=== PATIENT | female | born 1950 | race Caucasian/White ===

== ENCOUNTER 2022-09-15 09:36 | Inpatient (IN) ==
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
[2022-09-15 10:11] LABS: BASOPHILS # (AUTO) 0.2 X10^3/uL (0.0-0.1); BASOPHILS % (AUTO) 1.3 % (0.2-1.0); EOSINOPHILS # (AUTO) 0.2 x10^3/uL (0.0-0.2); EOSINOPHILS % (AUTO) 1.3 % (0.9-2.9); HEMATOCRIT 54.3 % (36.0-47.0); HEMOGLOBIN 18.5 g/dL (12.0-16.0); LYMPHOCYTES # (AUTO) 2.7 X10^3/uL (1.3-2.9); LYMPHOCYTES % (AUTO) 21.6 % (21.0-51.0); MEAN CORPUSCULAR HEMOGLOBIN 32.2 pg (27.0-34.0); MEAN CORPUSCULAR HGB CONC 34.1 g/dL (33.0-35.0); MEAN CORPUSCULAR VOLUME 94.4 fL (80.0-100.0); MEAN PLATELET VOLUME 9.8 fL (7.4-11.0); MONOCYTES # (AUTO) 1.1 x10^3/uL (0.3-0.8); MONOCYTES % (AUTO) 8.8 % (0.0-13.0); NEUTROPHILS # (AUTO) 8.3 x10^3/uL (2.2-4.8); PLATELET COUNT 267 X10^3/uL (150.0-450.0); RED BLOOD COUNT 5.75 X10^6/uL (3.5-5.4); RED CELL DISTRIBUTION WIDTH 13.4 % (11.6-16.5); WHITE BLOOD COUNT 12.3 X10^3/uL (3.6-10.0)
[2022-09-15] MEDS ORDERED: APRESOLINE INJ 20 MG VIAL IVP ONE ×2 (10:24→12:06)
[2022-09-15] MEDS ORDERED: APRESOLINE INJ 20 MG VIAL ONE ×2 (10:24→11:53)
[2022-09-15 10:27] LABS: BILIRUBIN,URINE 1+ (NEGATIVE); BLOOD/HEMOGLOBIN,URINE 3+ (NEGATIVE); GLUCOSE, URINE NEGATIVE (NEGATIVE); KETONES,URINE 4+ (NEGATIVE); LEUKOCYTE ESTERASE ,URINE 3+ (NEGATIVE); NITRITES,URINE POSITIVE (NEGATIVE); PROTEIN,URINE 2+ (NEGATIVE); UROBILINOGEN,URINE 1+ (NORMAL)
[2022-09-15 10:28] LABS: ALANINE AMINOTRANSFERASE 37 Units/L (12-78); ALBUMIN 3.6 g/dL (3.4-5.0); ALKALINE PHOSPHATASE 60 Units/L (46-116); ASPARTATE AMINO TRANSFERASE 36 Units/L (15-37); BLOOD UREA NITROGEN 15 mg/dL (7-18); CARBON DIOXIDE 23.9 mmol/L (21-32); CHLORIDE 103 mmol/L (98-107); COR NA(FOR HYPERGLY) 139 mmol/L (136-145); CREATININE 0.84 mg/dL (0.55-1.02); GLUCOSE 113 mg/dL (65-99); LIPASE 101 Units/L (73-393); POTASSIUM 4.1 mmol/L (3.5-5.1); SODIUM 139 mmol/L (136-145); TOTAL PROTEIN 7.5 g/dL (6.4-8.2); TSH (3RD GENERATION) 4.089 uIU/mL (0.358-3.74); eGFR NON BLACK RACES > 60 (>60)
[2022-09-15 10:40] LABS: APPEARANCE,URINE TURBID (CLEAR); BACTERIA,URINE 2+ /HPF (NEGATIVE); COLOR,URINE DARK YELLOW (YELLOW); RBC,URINE 0-2 /HPF (0-3); SQUAMOUS EPITHELIAL CELL,UR FEW /HPF (NEGATIVE)
[2022-09-15] MEDS ORDERED: NS 250 ML IV 250 ML IV ONE ×2 (10:44→11:06)
[2022-09-15] MEDS ORDERED: ROCEPHIN VIAL 1 GRAM 1 G in NS 100 ML IV 100 ML IV ONE (10:46)
[2022-09-15] MEDS ORDERED: ROCEPHIN VIAL 1 GRAM ONE (10:53)
[2022-09-15] MEDS ORDERED: NS 50 ML IV 50 ML IV ONE (10:54)
--- NOTE | 2022-09-15 10:56 | EKG ---
Test Reason : weakness Blood Pressure : */* mmHG Vent. Rate : 117 BPM Atrial Rate : 117 BPM P-R Int : 144 ms QRS Dur : 70 ms QT Int : 338 ms P-R-T Axes : 81 27 68 degrees QTc Int : 471 ms Sinus tachycardia Otherwise normal ECG No previous ECGs available Confirmed by Casper Bueno ([id number]) on 09/15/2022 6:36:26 PM Referred By: Confirmed By: Casper Bueno
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
[2022-09-15] MEDS ORDERED: NS 1,000 ML IV 1,000 ML ONE (12:13)
[2022-09-15] MEDS ORDERED: NICOTINE PATCH TD ONE (12:19)
[2022-09-15] MEDS ORDERED: ATIVAN INJ 2 MG VIAL IVP ONE (12:28)
--- NOTE | 2022-09-15 12:28 | EKG ---
Test Reason : tachycardia Blood Pressure : */* mmHG Vent. Rate : 153 BPM Atrial Rate : 153 BPM P-R Int : 128 ms QRS Dur : 64 ms QT Int : 264 ms P-R-T Axes : 78 42 78 degrees QTc Int : 421 ms Sinus tachycardia with premature supraventricular complexes Nonspecific ST abnormality Abnormal ECG When compared with ECG of 15-SEP-2022 10:39, (Unconfirmed) premature supraventricular complexes are now present ST now depressed in Lateral leads Confirmed by Casper Bueno ([id number]) on 09/15/2022 6:36:18 PM Referred By: Confirmed By: Casper Bueno
[2022-09-15] MEDS ORDERED: ATIVAN INJ 2 MG VIAL ONE (12:30)
[2022-09-15] MEDS ORDERED: CARDIZEM INJ 50 MG VIAL IVP ONE ×2 (12:47→12:59)
[2022-09-15] MEDS ORDERED: NS 1,000 ML IV 1,000 ML IV SCH (13:00)
[2022-09-15] MEDS: ROCEPHIN VIAL 1 GRAM 1 G in NS 100 ML IV 100 ML IV SCH (14:45)
[2022-09-15] MEDS: NS 1,000 ML IV 1,000 ML IV SCH ×2 (14:57→20:00)
[2022-09-15] MEDS: TOPROL XL PO SCH (17:20)
[2022-09-16] MEDS: NS 1,000 ML IV 1,000 ML IV SCH ×5 (03:00→23:45)
[2022-09-16 05:08] LABS: MEAN CORPUSCULAR HEMOGLOBIN 32.7 pg (27.0-34.0)
[2022-09-16 05:16] LABS: BASOPHILS # (AUTO) 0.1 X10^3/uL (0.0-0.1); BASOPHILS % (AUTO) 0.8 % (0.2-1.0); EOSINOPHILS # (AUTO) 0.1 x10^3/uL (0.0-0.2); EOSINOPHILS % (AUTO) 1.6 % (0.9-2.9); HEMATOCRIT 48.4 % (36.0-47.0); HEMOGLOBIN 16.7 g/dL (12.0-16.0); LYMPHOCYTES % (AUTO) 21.2 % (21.0-51.0); MEAN CORPUSCULAR HGB CONC 34.5 g/dL (33.0-35.0); MEAN CORPUSCULAR VOLUME 94.8 fL (80.0-100.0); MEAN PLATELET VOLUME 10.4 fL (7.4-11.0); MONOCYTES # (AUTO) 0.9 x10^3/uL (0.3-0.8); MONOCYTES % (AUTO) 9.5 % (0.0-13.0); NEUTROPHILS # (AUTO) 6.3 x10^3/uL (2.2-4.8); NEUTROPHILS % (AUTO) 66.9 % (42.0-75.0); PLATELET COUNT 216 X10^3/uL (150.0-450.0); RED BLOOD COUNT 5.11 X10^6/uL (3.5-5.4); RED CELL DISTRIBUTION WIDTH 13.4 % (11.6-16.5); WHITE BLOOD COUNT 9.4 X10^3/uL (3.6-10.0)
[2022-09-16 05:19] LABS: ALANINE AMINOTRANSFERASE 25 Units/L (12-78); ALBUMIN 2.9 g/dL (3.4-5.0); ALKALINE PHOSPHATASE 48 Units/L (46-116); ASPARTATE AMINO TRANSFERASE 21 Units/L (15-37); BLOOD UREA NITROGEN 8 mg/dL (7-18); CALCIUM 8.2 mg/dL (8.5-10.1); CARBON DIOXIDE 23.7 mmol/L (21-32); CHLORIDE 106 mmol/L (98-107); COR CA(FOR HYPOALB) 9.1 mg/dL (8.5-10.1); CREATININE 0.69 mg/dL (0.55-1.02); GLUCOSE 90 mg/dL (65-99); POTASSIUM 3.7 mmol/L (3.5-5.1); SODIUM 141 mmol/L (136-145); TOTAL PROTEIN 6.2 g/dL (6.4-8.2); eGFR NON BLACK RACES > 60 (>60)
[2022-09-16] MEDS ORDERED: MICRO K EXTEN CAP 10 MEQ PO PRN ×2 (06:20→10:54)
[2022-09-16] MEDS ORDERED: K-DUR TAB 20 MEQ PO PRN ×2 (06:20→10:54)
[2022-09-16] MEDS ORDERED: KLOR-CON PO PRN ×2 (06:20→10:54)
[2022-09-16] MEDS: TOPROL XL PO SCH (08:40)
[2022-09-16] MEDS: ROCEPHIN VIAL 1 GRAM 1 G in NS 100 ML IV 100 ML IV SCH (08:41)
[2022-09-16] MEDS: LOVENOX INJ 40 MG SYR SC SCH (08:54)
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
[2022-09-16] MEDS ORDERED: POTASSIUM CHL 40 MEQ/NS 0.45% 500 ML IV PRN (10:54)
[2022-09-16] MEDS ORDERED: POTASSIUM CHLORIDE LIQ 20 MEQ UDC PO PRN (10:54)
[2022-09-16] MEDS ORDERED: POTASSIUM CHL 60 MEQ/NS 0.45% 500 ML IV PRN (10:54)
[2022-09-16] MEDS ORDERED: MAGNESIUM SULFATE 1 GRAM/100 mL PREMIX 1 G/100 ML BAG IV PRN (10:54)
[2022-09-16] MEDS: NICOTINE PATCH TD SCH (11:34)
[2022-09-16 12:24] VITALS: BMI 24.3
[2022-09-17 05:17] LABS: BASOPHILS # (AUTO) 0.1 X10^3/uL (0.0-0.1); EOSINOPHILS # (AUTO) 0.2 x10^3/uL (0.0-0.2); EOSINOPHILS % (AUTO) 1.5 % (0.9-2.9); HEMATOCRIT 43.6 % (36.0-47.0); LYMPHOCYTES # (AUTO) 2.5 X10^3/uL (1.3-2.9); LYMPHOCYTES % (AUTO) 21.5 % (21.0-51.0); MEAN CORPUSCULAR HEMOGLOBIN 32.6 pg (27.0-34.0); MEAN CORPUSCULAR HGB CONC 34.4 g/dL (33.0-35.0); MEAN CORPUSCULAR VOLUME 94.7 fL (80.0-100.0); MEAN PLATELET VOLUME 10.4 fL (7.4-11.0); MONOCYTES % (AUTO) 8.9 % (0.0-13.0); NEUTROPHILS # (AUTO) 7.7 x10^3/uL (2.2-4.8); NEUTROPHILS % (AUTO) 67.1 % (42.0-75.0); PLATELET COUNT 188 X10^3/uL (150.0-450.0); WHITE BLOOD COUNT 11.5 X10^3/uL (3.6-10.0)
[2022-09-17 05:29] LABS: ALANINE AMINOTRANSFERASE 20 Units/L (12-78); ALBUMIN 2.5 g/dL (3.4-5.0); ALKALINE PHOSPHATASE 42 Units/L (46-116); ASPARTATE AMINO TRANSFERASE 22 Units/L (15-37); BLOOD UREA NITROGEN 4 mg/dL (7-18); CALCIUM 7.8 mg/dL (8.5-10.1); CARBON DIOXIDE 20.6 mmol/L (21-32); CHLORIDE 106 mmol/L (98-107); CREATININE 0.54 mg/dL (0.55-1.02); GLUCOSE 95 mg/dL (65-99); MAGNESIUM 1.6 mg/dL (2.0-2.9); POTASSIUM 3.8 mmol/L (3.5-5.1); SODIUM 138 mmol/L (136-145); TOTAL PROTEIN 5.6 g/dL (6.4-8.2); eGFR NON BLACK RACES > 60 (>60)
[2022-09-17] MEDS: NS 1,000 ML IV 1,000 ML IV SCH ×2 (05:43→17:35)
[2022-09-17] MEDS: MAGNESIUM SULFATE 1 GRAM/100 mL PREMIX 1 G/100 ML BAG IV PRN ×2 (05:55→17:58)
[2022-09-17] MEDS: NICOTINE PATCH TD SCH (09:38)
[2022-09-17] MEDS: ROCEPHIN VIAL 1 GRAM 1 G in NS 100 ML IV 100 ML IV SCH (09:38)
[2022-09-17] MEDS: LOPRESSOR INJ 5 MG AMP IVP SCH ×2 (09:39→20:24)
[2022-09-17] MEDS: LOVENOX INJ 40 MG SYR SC SCH (09:39)
[2022-09-17] MEDS: PATIENT'S HOME MEDICATION PO SCH ×2 (14:35→22:57)
[2022-09-17] MEDS: TUSSIONEX PENNKINETIC SUSP PO PRN (18:22)
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
[2022-09-18] MEDS: NS 1,000 ML IV 1,000 ML IV SCH ×3 (00:39→16:15)
[2022-09-18 05:29] LABS: BASOPHILS # (AUTO) 0.1 X10^3/uL (0.0-0.1); BASOPHILS % (AUTO) 0.9 % (0.2-1.0); EOSINOPHILS # (AUTO) 0.1 x10^3/uL (0.0-0.2); EOSINOPHILS % (AUTO) 1.2 % (0.9-2.9); HEMATOCRIT 41.9 % (36.0-47.0); HEMOGLOBIN 14.4 g/dL (12.0-16.0); LYMPHOCYTES # (AUTO) 1.8 X10^3/uL (1.3-2.9); LYMPHOCYTES % (AUTO) 16.4 % (21.0-51.0); MEAN CORPUSCULAR HEMOGLOBIN 32.2 pg (27.0-34.0); MEAN CORPUSCULAR HGB CONC 34.3 g/dL (33.0-35.0); MEAN CORPUSCULAR VOLUME 93.9 fL (80.0-100.0); MEAN PLATELET VOLUME 10.4 fL (7.4-11.0); MONOCYTES # (AUTO) 0.9 x10^3/uL (0.3-0.8); MONOCYTES % (AUTO) 7.7 % (0.0-13.0); NEUTROPHILS # (AUTO) 8.2 x10^3/uL (2.2-4.8); NEUTROPHILS % (AUTO) 73.8 % (42.0-75.0); PLATELET COUNT 193 X10^3/uL (150.0-450.0); RED BLOOD COUNT 4.46 X10^6/uL (3.5-5.4); RED CELL DISTRIBUTION WIDTH 12.9 % (11.6-16.5); WHITE BLOOD COUNT 11.1 X10^3/uL (3.6-10.0)
[2022-09-18 05:39] LABS: ALANINE AMINOTRANSFERASE 19 Units/L (12-78); ALBUMIN 2.3 g/dL (3.4-5.0); ALKALINE PHOSPHATASE 40 Units/L (46-116); ASPARTATE AMINO TRANSFERASE 14 Units/L (15-37); BLOOD UREA NITROGEN 4 mg/dL (7-18); CALCIUM 7.7 mg/dL (8.5-10.1); CARBON DIOXIDE 22.5 mmol/L (21-32); CHLORIDE 104 mmol/L (98-107); COR CA(FOR HYPOALB) 9.1 mg/dL (8.5-10.1); CREATININE 0.56 mg/dL (0.55-1.02); GLUCOSE 82 mg/dL (65-99); MAGNESIUM 1.9 mg/dL (2.0-2.9); POTASSIUM 3.2 mmol/L (3.5-5.1); SODIUM 137 mmol/L (136-145); TOTAL PROTEIN 5.5 g/dL (6.4-8.2); eGFR NON BLACK RACES > 60 (>60)
[2022-09-18] MEDS: K-RIDER 10 MEQ/NS 100 ML 10 MEQ/100 ML BAG IV PRN ×4 (06:11→12:42)
[2022-09-18] MEDS: LOVENOX INJ 40 MG SYR SC SCH (08:16)
[2022-09-18] MEDS: NICOTINE PATCH TD SCH (08:16)
[2022-09-18] MEDS: LOPRESSOR INJ 5 MG AMP IVP SCH ×3 (08:16→21:06)
[2022-09-18] MEDS: ROCEPHIN VIAL 1 GRAM 1 G in NS 100 ML IV 100 ML IV SCH (08:16)
[2022-09-18] MEDS: PATIENT'S HOME MEDICATION PO SCH ×2 (09:59→21:07)
[2022-09-18] MEDS: MAGNESIUM SULFATE 1 GRAM/100 mL PREMIX 1 G/100 ML BAG IV PRN ×2 (12:46→13:56)
[2022-09-18] MEDS ORDERED: CATAPRES-TTS-1 TD SCH (13:00)
[2022-09-18] MEDS ORDERED: HALDOL INJ IM PRN (14:47)
[2022-09-18] MEDS: VALIUM INJ IM PRN (15:19)
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
[2022-09-19] MEDS: NS 1,000 ML IV 1,000 ML IV SCH ×4 (00:09→22:00)
[2022-09-19] MEDS: LOPRESSOR INJ 5 MG AMP IVP SCH ×3 (05:35→21:26)
[2022-09-19 05:45] LABS: BASOPHILS # (AUTO) 0.1 X10^3/uL (0.0-0.1); BASOPHILS % (AUTO) 0.8 % (0.2-1.0); EOSINOPHILS # (AUTO) 0.2 x10^3/uL (0.0-0.2); EOSINOPHILS % (AUTO) 2.5 % (0.9-2.9); HEMATOCRIT 40.5 % (36.0-47.0); HEMOGLOBIN 14.1 g/dL (12.0-16.0); LYMPHOCYTES # (AUTO) 1.4 X10^3/uL (1.3-2.9); LYMPHOCYTES % (AUTO) 14.7 % (21.0-51.0); MEAN CORPUSCULAR HEMOGLOBIN 32.8 pg (27.0-34.0); MEAN CORPUSCULAR HGB CONC 34.7 g/dL (33.0-35.0); MEAN CORPUSCULAR VOLUME 94.7 fL (80.0-100.0); MEAN PLATELET VOLUME 10.6 fL (7.4-11.0); MONOCYTES # (AUTO) 0.9 x10^3/uL (0.3-0.8); MONOCYTES % (AUTO) 9.5 % (0.0-13.0); NEUTROPHILS # (AUTO) 7.1 x10^3/uL (2.2-4.8); NEUTROPHILS % (AUTO) 72.5 % (42.0-75.0); PLATELET COUNT 214 X10^3/uL (150.0-450.0); RED BLOOD COUNT 4.28 X10^6/uL (3.5-5.4); RED CELL DISTRIBUTION WIDTH 13.2 % (11.6-16.5); WHITE BLOOD COUNT 9.7 X10^3/uL (3.6-10.0)
[2022-09-19 06:04] LABS: ALANINE AMINOTRANSFERASE 18 Units/L (12-78); ALBUMIN 2.2 g/dL (3.4-5.0); ALKALINE PHOSPHATASE 40 Units/L (46-116); ASPARTATE AMINO TRANSFERASE 13 Units/L (15-37); BLOOD UREA NITROGEN 5 mg/dL (7-18); CARBON DIOXIDE 20.1 mmol/L (21-32); CHLORIDE 104 mmol/L (98-107); COR CA(FOR HYPOALB) 9.4 mg/dL (8.5-10.1); CREATININE 0.57 mg/dL (0.55-1.02); GLUCOSE 73 mg/dL (65-99); MAGNESIUM 1.9 mg/dL (2.0-2.9); POTASSIUM 3.8 mmol/L (3.5-5.1); SODIUM 138 mmol/L (136-145); TOTAL PROTEIN 5.7 g/dL (6.4-8.2); eGFR NON BLACK RACES > 60 (>60)
[2022-09-19] MEDS: MAGNESIUM SULFATE 1 GRAM/100 mL PREMIX 1 G/100 ML BAG IV PRN ×2 (06:18→07:40)
[2022-09-19] MEDS: K-RIDER 10 MEQ/NS 100 ML 10 MEQ/100 ML BAG IV PRN ×2 (07:42→08:40)
[2022-09-19] MEDS: LOVENOX INJ 40 MG SYR SC SCH (08:00)
[2022-09-19] MEDS: NICOTINE PATCH TD SCH (08:00)
[2022-09-19] MEDS: PATIENT'S HOME MEDICATION PO SCH ×2 (08:09→21:25)
[2022-09-19] MEDS: ROCEPHIN VIAL 1 GRAM 1 G in NS 100 ML IV 100 ML IV SCH (08:40)
[2022-09-19] MEDS: VALIUM INJ IM PRN (11:05)
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
[2022-09-19] MEDS: TUSSIONEX PENNKINETIC SUSP PO PRN (17:49)
[2022-09-20] MEDS: LOPRESSOR INJ 5 MG AMP IVP SCH ×3 (05:13→21:09)
[2022-09-20 05:31] LABS: BASOPHILS # (AUTO) 0.1 X10^3/uL (0.0-0.1); BASOPHILS % (AUTO) 0.8 % (0.2-1.0); EOSINOPHILS # (AUTO) 0.3 x10^3/uL (0.0-0.2); EOSINOPHILS % (AUTO) 2.9 % (0.9-2.9); HEMATOCRIT 39.4 % (36.0-47.0); HEMOGLOBIN 13.5 g/dL (12.0-16.0); LYMPHOCYTES # (AUTO) 1.7 X10^3/uL (1.3-2.9); LYMPHOCYTES % (AUTO) 17.5 % (21.0-51.0); MEAN CORPUSCULAR HEMOGLOBIN 32.3 pg (27.0-34.0); MEAN CORPUSCULAR HGB CONC 34.4 g/dL (33.0-35.0); MEAN CORPUSCULAR VOLUME 94.1 fL (80.0-100.0); MEAN PLATELET VOLUME 10.3 fL (7.4-11.0); MONOCYTES # (AUTO) 0.9 x10^3/uL (0.3-0.8); MONOCYTES % (AUTO) 9.5 % (0.0-13.0); NEUTROPHILS # (AUTO) 6.9 x10^3/uL (2.2-4.8); NEUTROPHILS % (AUTO) 69.3 % (42.0-75.0); PLATELET COUNT 217 X10^3/uL (150.0-450.0); RED BLOOD COUNT 4.19 X10^6/uL (3.5-5.4); RED CELL DISTRIBUTION WIDTH 13.1 % (11.6-16.5)
[2022-09-20] MEDS: NS 1,000 ML IV 1,000 ML IV SCH ×4 (05:51→22:43)
[2022-09-20 07:02] LABS: ALANINE AMINOTRANSFERASE 16 Units/L (12-78); ALKALINE PHOSPHATASE 39 Units/L (46-116); ASPARTATE AMINO TRANSFERASE 17 Units/L (15-37); BLOOD UREA NITROGEN 5 mg/dL (7-18); CALCIUM 7.9 mg/dL (8.5-10.1); CARBON DIOXIDE 19.5 mmol/L (21-32); CHLORIDE 103 mmol/L (98-107); COR CA(FOR HYPOALB) 9.5 mg/dL (8.5-10.1); CREATININE 0.59 mg/dL (0.55-1.02); GLUCOSE 70 mg/dL (65-99); MAGNESIUM 1.6 mg/dL (2.0-2.9); SODIUM 137 mmol/L (136-145); TOTAL PROTEIN 5.6 g/dL (6.4-8.2); eGFR NON BLACK RACES > 60 (>60)
[2022-09-20] MEDS: MAGNESIUM SULFATE 1 GRAM/100 mL PREMIX 1 G/100 ML BAG IV PRN ×2 (07:12→08:57)
[2022-09-20] MEDS: LOVENOX INJ 40 MG SYR SC SCH (08:10)
[2022-09-20] MEDS: NICOTINE PATCH TD SCH (08:10)
[2022-09-20] MEDS: ROCEPHIN VIAL 1 GRAM 1 G in NS 100 ML IV 100 ML IV SCH (08:11)
[2022-09-20] MEDS: PATIENT'S HOME MEDICATION PO SCH ×2 (08:22→21:06)
[2022-09-20] MEDS: MORPHINE SULFATE INJ 2 MG INJ IVP PRN ×2 (10:07→18:08)
[2022-09-20] MEDS: DUONEB 0.5 MG/3 MG (3 mL) NEB SCH ×2 (10:24→13:37)
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
--- NOTE | 2022-09-20 12:05 | RAD ---
HISTORYCOUGHSTUDYCHEST, 1 [id number] trachea is midline. The cardiac silhouette is unremarkable . The lungs are clear without focal infiltrate or effusion. The bony thorax is unremarkable.IMPRESSIONNo acute cardiopulmonary disease.Electronically signed by: GATO RIVERA (Sep 20, 2022 12:03:50)
[2022-09-20] MEDS: VALIUM INJ IM PRN (16:14)
[2022-09-21] MEDS: DUONEB 0.5 MG/3 MG (3 mL) NEB SCH ×2 (00:59→06:18)
[2022-09-21] MEDS: MORPHINE SULFATE INJ 2 MG INJ IVP PRN (03:11)
[2022-09-21] MEDS: LOPRESSOR INJ 5 MG AMP IVP SCH ×2 (05:08→13:47)
[2022-09-21 05:24] LABS: BASOPHILS # (AUTO) 0.1 X10^3/uL (0.0-0.1); BASOPHILS % (AUTO) 0.6 % (0.2-1.0); EOSINOPHILS # (AUTO) 0.3 x10^3/uL (0.0-0.2); EOSINOPHILS % (AUTO) 3.1 % (0.9-2.9); HEMATOCRIT 40.1 % (36.0-47.0); HEMOGLOBIN 13.7 g/dL (12.0-16.0); LYMPHOCYTES # (AUTO) 1.3 X10^3/uL (1.3-2.9); MEAN CORPUSCULAR HEMOGLOBIN 32.3 pg (27.0-34.0); MEAN CORPUSCULAR HGB CONC 34.2 g/dL (33.0-35.0); MEAN CORPUSCULAR VOLUME 94.4 fL (80.0-100.0); MEAN PLATELET VOLUME 10.5 fL (7.4-11.0); MONOCYTES # (AUTO) 0.9 x10^3/uL (0.3-0.8); MONOCYTES % (AUTO) 9.8 % (0.0-13.0); NEUTROPHILS # (AUTO) 6.9 x10^3/uL (2.2-4.8); NEUTROPHILS % (AUTO) 72.5 % (42.0-75.0); PLATELET COUNT 233 X10^3/uL (150.0-450.0); RED BLOOD COUNT 4.25 X10^6/uL (3.5-5.4); WHITE BLOOD COUNT 9.6 X10^3/uL (3.6-10.0)
[2022-09-21 05:29] LABS: ALANINE AMINOTRANSFERASE 16 Units/L (12-78); ALBUMIN 2.1 g/dL (3.4-5.0); ALKALINE PHOSPHATASE 37 Units/L (46-116); ASPARTATE AMINO TRANSFERASE 13 Units/L (15-37); BLOOD UREA NITROGEN 4 mg/dL (7-18); CALCIUM 8.1 mg/dL (8.5-10.1); CARBON DIOXIDE 22.1 mmol/L (21-32); CHLORIDE 100 mmol/L (98-107); COR CA(FOR HYPOALB) 9.6 mg/dL (8.5-10.1); CREATININE 0.53 mg/dL (0.55-1.02); GLUCOSE 83 mg/dL (65-99); MAGNESIUM 1.5 mg/dL (2.0-2.9); POTASSIUM 3.8 mmol/L (3.5-5.1); SODIUM 135 mmol/L (136-145); TOTAL PROTEIN 5.9 g/dL (6.4-8.2); eGFR NON BLACK RACES > 60 (>60)
[2022-09-21] MEDS: NS 1,000 ML IV 1,000 ML IV SCH (05:47)
[2022-09-21] MEDS: ROCEPHIN VIAL 1 GRAM 1 G in NS 100 ML IV 100 ML IV SCH (09:39)
[2022-09-21] MEDS: MAGNESIUM SULFATE 1 GRAM/100 mL PREMIX 1 G/100 ML BAG IV PRN ×2 (09:39→10:48)
[2022-09-21] MEDS: NICOTINE PATCH TD SCH (09:40)
[2022-09-21] MEDS: LOVENOX INJ 40 MG SYR SC SCH (09:40)
[2022-09-21 10:37] VITALS: TEMP 98
[2022-09-21] MEDS: PATIENT'S HOME MEDICATION PO SCH (10:38)
[2022-09-21 13:34] VITALS: O2SAT 95
[2022-09-21 14:13] VITALS: BP 176/79; PULSE 97
== END 2022-09-21 14:37 | disposition hospice, home (50) | DRG 689 ==
LOC: ER 09:36 → ICU 09:36
PROVIDERS: ADMIT Internal Medicine; ATTEND Internal Medicine
DX: R40.4 Transient alteration of awareness; I63.89 Other cerebral infarction; R53.1 Weakness; R41.89 Other symptoms and signs involving cognitive functions and awareness; B96.29 Other Escherichia coli [E. coli] as the cause of diseases classified elsewhere; R26.89 Other abnormalities of gait and mobility; F12.90 Cannabis use, unspecified, uncomplicated; I10 Essential (primary) hypertension; H54.3 Unqualified visual loss, both eyes; R20.0 Anesthesia of skin; R13.11 Dysphagia, oral phase; Z66 Do not resuscitate; N39.0 Urinary tract infection, site not specified; F10.20 Alcohol dependence, uncomplicated; E83.42 Hypomagnesemia; R00.0 Tachycardia, unspecified